=== PATIENT | female | born 1940 | race Caucasian/White ===

== ENCOUNTER 2016-12-04 17:14 | Inpatient (IN) | payer MEDICARE, OTHER ==
[2016-12-04] MEDS ORDERED: TYLENOL 325 MG PO PRN (17:49)
[2016-12-04] MEDS ORDERED: Zofran 4 MG/2 ML VIAL IV PRN (17:49)
[2016-12-04] MEDS ORDERED: PHARMACY DOSING REQUIRED: VANCOMYCIN IV ONE (17:51)
[2016-12-04] MEDS ORDERED: DELTASONE 20 MG PO ONE (17:52)
--- NOTE | 2016-12-04 18:21 | PCM.HP ---
History of Present Illness - Chief Complaint Chief Complaint: cellulitis failed outpatient treatment Date: 12/04/16 History of Present Illness: is a 76 year old female. who has been struggling with cellulites she has one episode previously that had to be treated inpatient in the right leg she thinks 4 years ago. She originally presented on 11/18/16 to see Ibeth Phillips and was treated for lower extremity cellulitis and placed on Bactrim. This caused her to swell and have itching red rash on her upper and lower extremities she thus saw Mehdi Sanches at [facility] on 11/23/16 and was diagnosed with sulfa allergy and changed to doxycycline 100 bid and followed up with myself on 11/25 and it was not improving much and bilateral lower extremities and the peripheral upper extremities red as well. Amoxicillin was added for concern for strep erysipelas and she continued the doxy as well. She took all the antibiotics and the right lower leg continued to get more red hot and was swelling more. She had drainage and had itching bilateral upper and lower extremities as well. [facility] over to our office and on evaluation had a red hot right lower extremity with open lesions and weeping and sent for direct admission for failed outpatient therapy. - Review of Systems Constitutional: No Fever, No Chills Eyes: No Symptoms Ears, Nose, & Throat: No Symptoms Respiratory: No Cough, No Short Of Breath Cardiac: No Chest Pain, No Edema, No Syncope Abdominal/Gastrointestinal: No Abdominal Pain, No Nausea, No Vomiting, No Diarrhea Genitourinary Symptoms: No Dysuria Musculoskeletal: No Back Pain, No Neck Pain Skin: Cellulitis, Pruritis, Rash Neurological: No Dizziness, No Focal Weakness, No Sensory Changes Psychological: No Symptoms Endocrine: No Symptoms Hematologic/Lymphatic: No Symptoms Immunological/Allergic: No Symptoms Medications & Allergies Home Medications: Home Medication List Multivitamin [Multivitamins] 1 tab PO DAILY 03/28/13 [History Confirmed 12/04/16 ] Magnesium Amino Acid Chelate [Magnesium] 1 tab PO DAILY 03/29/13 [History Confirmed 12/04/16] Potassium 99 mg PO BID 12/04/16 [History Confirmed 12/04/16] Ubidecarenone [Co Q-10] 50 mg PO DAILY 12/04/16 [History Confirmed 12/04/16] Allergies/Adverse Reactions: Allergies Allergy/AdvReac Type Severity Reaction Status Date / Time Sulfa (Sulfonamide AdvReac Mild Itching Verified 12/04/16 17:43 Antibiotics) - Past Medical History Past Medical History: Yes Neurological History: No Pertinent History ENT History: No Pertinent History Cardiac History: No Pertinent History Respiratory History: No Pertinent History Endocrine Medical History: Hyperthyroidism Musculoskelatal History: No Pertinent History GI Medical History: No Pertinent History History: No Pertinent History Pyscho-Social History: No Pertinent History Reproductive Disorders: No Pertinent History - Past Surgical History Past Surgical History: Yes Neuro Surgical History: No Pertinent History Cardiac History: No Pertinent History Respiratory Surgery: No Pertinent History GI Surgical History: No Pertinent History Genitourinary Surgical Hx: No Pertinent History Musculskeletal Surgical Hx: No Pertinent History Female Surgical History: No Pertinent History Other Surgical History: tonsilectomy in childhood - Social History Smoking Status: Never smoker Exposure to second hand smoke: No Alcohol: None Drug Use: none - Physical Exam General Appearance: obese Neurologic Exam: alert, oriented x 3, cooperative, normal mood/affect, nml cerebellar function, nml station & gait, sensation nml, No motor deficits Eye Exam: PERRL/EOMI, eyes nml inspection Ears, Nose, Throat Exam: normal ENT inspection, pharynx normal, moist mucous membranes Neck Exam: normal inspection, non-tender, supple, full range of motion Respiratory Exam: normal breath sounds, lungs clear, No respiratory distress Cardiovascular Exam: regular rate/rhythm, normal heart sounds, normal peripheral pulses Gastrointestinal/Abdomen Exam: soft, normal bowel sounds, No tenderness, No mass Back Exam: normal inspection, normal range of motion, No CVA tenderness, No vertebral tenderness Extremity Exam: normal inspection, normal range of motion, pelvis stable Skin Exam: rash, other (right lower leg hot red weeping 4+ edema to knee left lower extremity redness without warmth and bilateral distal upper extremities with redness and excoriations but no warmth or edema) Lymphatic Exam: No adenopathy Assessment/Plan (1) Cellulitis of right lower leg Current Visit: Yes Status: Acute Assessment & Plan: had allergic reaction to bactrim then failed doxy + amoxicillin severe and worsening infection treat with vancomycin pharmacy to dose cbc cmp elevation and compression lovenox for ppx reg diet ambulate as tolerated Code(s): L03.115 - CELLULITIS OF RIGHT LOWER LIMB (2) Obesity Current Visit: Yes Status: Chronic Code(s): E66.9 - OBESITY, UNSPECIFIED
[2016-12-04 18:26] LABS: BASOPHIL % 0.5 % (0.0-0.4); Granulocytes % 72.6 % (36.0-66.0); Mean Cell Volume 92.1 fl (78-100); Mean Corpuscular Hemoglobin 29.4 pg (26-32); Mean Platelet Volume 10.4 fl (6-9.5); Monocytes % 8.9 % (0.0-12.0); Platelet Count 344 K/mm3 (150-450); Red Blood Count 4.66 M/mm3 (4.1-5.4); Red Cell Distribution Width 14.1 % (11.5-14.0); White Blood Count 7.7 K/mm3 (4.0-10.5)
[2016-12-04 18:55] LABS: ALBUMIN 3.5 g/dL (3.4-5.0); ALKALINE PHOSPHATASE 83 U/L (46-116); ANION GAP 10.5 MEQ/L (5-15); BLOOD UREA NITROGEN 17 mg/dL (9-20); CHLORIDE 105 mEq/L (98-107); Carbon Dioxide 31.5 mEq/L (21-32); Glucose 91 MG/DL (70-110); Potassium 4.4 mEq/L (3.5-5.1); SGOT/AST 20 U/L (15-37); SGPT/ALT 19 U/L (12-78); SODIUM 143 mEq/L (136-145); Total Protein 7.1 gm/dL (6.4-8.2)
[2016-12-04] MEDS ORDERED: VANCOCIN 1 GM VIAL*** 1 GM in Sodium Chloride 0.9% 250 ML 250 ML IV SCH (19:30)
[2016-12-04] MEDS ORDERED: Vancomycin 1GM/ Ns 250ML*** 250 ML IV ONE (19:37)
[2016-12-04] MEDS: VANCOCIN 1 GM VIAL*** 1 GM in Sodium Chloride 0.9% 250 ML 250 ML IV ONE (20:42)
[2016-12-05] MEDS: ENOXAPARIN SODIUM SQ SCH (09:37)
--- NOTE | 2016-12-05 12:21 | PCM.NOTE ---
Date and Time: 12/05/16 1218 Subjective Assessment: Pt is having some itchy skin on her LE but it's somewhat improved. no pain. Thinks she may have a little less redness on the LLE. Dali po. - Review of Systems Constitutional: No Fever Skin: Cellulitis Objective Exam General Appearance: no apparent distress Neurologic Exam: alert, oriented x 3, cooperative Respiratory Exam: normal breath sounds, lungs clear, No crackles/rales, No rhonchi, No wheezing Cardiovascular Exam: regular rate/rhythm, normal heart sounds, No murmur Gastrointestinal/Abdomen Exam: soft, normal bowel sounds, No tenderness Extremity Exam: other (RLE is wrapped; there is erythema to the ankle distal to the wrap. Wrap is clean and dry. LLE is mildly erythematous anteriorly from the ankle to the knee; it has regressed slightly from the marked border from yesterday.) OBJECTIVE DATA Vital Signs: Vital Signs - 24 hr Temp Pulse Resp BP BP Pulse Ox 12/05/16 07:48 98.5 F 90 18 130/62 94 L 12/05/16 04:00 98.1 F 98 H 18 148/71 95 12/04/16 23:57 98.8 F 97 H 16 129/62 95 12/04/16 21:00 98.3 F 97 H 18 142/68 94 L 12/04/16 20:00 98.3 F 97 H 18 142/68 94 L Intake and Output: Intake & Output 12/03/16 12/04/16 12/05/16 12/06/16 11:59 11:59 11:59 11:59 Intake Total 1010 Output Total 600 Balance 410 Weight 63.684 kg Lab Results: Lab Results-Last 24 Hours 12/04/16 12/04/16 Range/Units 18:12 18:12 WBC 7.7 (4.0-10.5) K/mm3 RBC 4.66 (4.1-5.4) M/mm3 Hgb 13.7 (12.0-16.0) gm/dl Hct 42.9 (35-47) % MCV 92.1 (78-100) fl MCH 29.4 (26-32) pg MCHC 31.9 L (32-36) g/dl RDW 14.1 H (11.5-14.0) % Plt Count 344 (150-450) K/mm3 MPV 10.4 H (6-9.5) fl Gran % 72.6 H (36.0-66.0) % Lymphocytes % 14.0 L (24.0-44.0) % Monocytes % 8.9 (0.0-12.0) % Eosinophils % 4.0 (0.00-5.0) % Basophils % 0.5 (0.0-0.4) % Basophils # 0.04 (0-0.4) Sodium 143 (136-145) mEq/L Potassium 4.4 (3.5-5.1) mEq/L Chloride 105 (98-107) mEq/L Carbon Dioxide 31.5 (21-32) mEq/L Anion Gap 10.5 (5-15) MEQ/L BUN 17 (9-20) mg/dL Creatinine 0.92 (0.55-1.30) mg/dl Estimated GFR > 60 ML/MIN Glucose 91 (70-110) MG/DL Calcium 9.7 (8.5-10.1) mg/dL Total Bilirubin 0.40 (0.2-1.0) mg/dL AST 20 (15-37) U/L ALT 19 (12-78) U/L Alkaline Phosphatase 83 (46-116) U/L Serum Total Protein 7.1 (6.4-8.2) gm/dL Albumin 3.5 (3.4-5.0) g/dL Multi-Disciplinary Progress Notes: Multi-Disciplinary Progress Notes 12/05/16 10:13 Pharmacy Note by Iftikhar Ley Pharmacokinetic Dosing Report Patient: Elva Lee Room: 107 Basic Entries: Drug Selected: Vancomycin Age: 76 years Weight: 64 kg Height: 56 in Gender: Female SCR: 0.98 mg/dl Calculated Values: Dosing weight: 50.5 kg IBW: 41.5 kg CRCL (ml/min): 31.0 Abraham (hr-1): 0.030 Half-life (hrs): 23.10 Vd (liters): 44.80 (factor: 0.7 L/kg) Final Report: Give Vancomycin 750 mg q24 hrs to produce a predicted peak of 32.1 mcg/ml and a predicted trough of 16.10 mcg/ml based on (Population-based pharmacokinetic analysis). Monitor Bun & Serum creatinine at least q3 days (more frequently if unstable). Obtain drug levels based on local protocol. PATIENT RECEIVED 1 GM LOADING DOSE THEN 750 MG Q24H vANCOMYCIN TROUGH WEDNESDAY EVENING 12/07/16 Initialized on 12/05/16 10:13 - END OF NOTE Assessment/Plan (1) Cellulitis of right lower leg Current Visit: Yes Status: Acute Assessment & Plan: Does not appear to be worsening. She is on IV vancomycin. Afebrile. Will likely take several days to see significant improvement. Code(s): L03.115 - CELLULITIS OF RIGHT LOWER LIMB (2) Obesity Current Visit: Yes Status: Chronic Qualifiers: Obesity type: due to excess calories Obesity classification: adult class 1 (BMI 30 ? 34.9) Code(s): E66.9 - OBESITY, UNSPECIFIED
[2016-12-05] MEDS: VANCOCIN 1 GM VIAL*** 0.75 GM in Sodium Chloride 0.9% 250 ML 250 ML IV SCH (21:42)
[2016-12-06] MEDS: ENOXAPARIN SODIUM SQ SCH (09:37)
--- NOTE | 2016-12-06 13:28 | PCM.NOTE ---
Date and Time: 12/06/16 1325 Subjective Assessment: She has itching and peeling of the legs bilaterally. Dali po well. - Review of Systems Constitutional: No Fever Skin: Cellulitis Objective Exam General Appearance: no apparent distress Neurologic Exam: alert, oriented x 3, cooperative Skin Exam: other (R lower leg with bright red erythema from knee to ankle. no exudate. Has barrier cream present. L lower leg with very mild anterior erythema from distal to knee for ankle. Both extremities are marked.) Respiratory Exam: normal breath sounds, lungs clear, No crackles/rales, No rhonchi, No wheezing Cardiovascular Exam: regular rate/rhythm, normal heart sounds Gastrointestinal/Abdomen Exam: soft, normal bowel sounds, No tenderness Extremity Exam: other (as above) OBJECTIVE DATA Vital Signs: Vital Signs - 24 hr Temp Pulse Resp BP Pulse Ox 12/06/16 12:00 98.0 F 83 18 124/59 95 12/06/16 08:00 98.5 F 63 18 117/62 93 L 12/06/16 04:00 98.2 F 70 18 137/62 95 12/05/16 23:48 98.5 F 99 H 16 138/74 94 L 12/05/16 20:00 98.5 F 88 18 130/59 94 L 12/05/16 16:00 99 F 95 H 18 117/56 94 L Pain Assessment - Last Documented Pain Scale Used [facility] Intake and Output: Intake & Output 12/04/16 12/05/16 12/06/16 12/07/16 11:59 11:59 11:59 11:59 Intake Total 1010 1910 420 Output Total 600 1900 300 Balance 410 10 120 Weight 63.684 kg Multi-Disciplinary Progress Notes: Multi-Disciplinary Progress Notes 12/06/16 13:04 Case Management Note by Claire Boston DISCHARGE PLAN REVIEWED WITH PT. NORMALLY LIVES AT HOME WITH GROWN SON AT HOME , INDEPENDENT OF ALL ADL'S, DECLINES NEED FOR ADDITIONAL ON DISCHARGE. IMPORTANT PAPERS FROM [employer] SIGNED AND PUT ON THE PAPER CHART. WILL CONTINUE TO MONITOR FOR ALL D/C NEEDS. Initialized on 12/06/16 13:04 - END OF NOTE Assessment/Plan (1) Cellulitis of right lower leg Current Visit: Yes Status: Acute Assessment & Plan: On IV vancomycin, no worsening and minimal improvement. I suspect she will start to improve over the next several days. Code(s): L03.115 - CELLULITIS OF RIGHT LOWER LIMB (2) Obesity Current Visit: Yes Status: Chronic Qualifiers: Obesity type: due to excess calories Obesity classification: adult class 1 (BMI 30 ? 34.9) Code(s): E66.9 - OBESITY, UNSPECIFIED
[2016-12-06] MEDS: VANCOCIN 1 GM VIAL*** 0.75 GM in Sodium Chloride 0.9% 250 ML 250 ML IV SCH (20:30)
[2016-12-07] MEDS: ENOXAPARIN SODIUM SQ SCH (09:35)
[2016-12-07] MEDS: Sodium Chloride 0.9% 10 ML FLUSH Syringe IV SCH ×4 (09:36→22:37)
--- NOTE | 2016-12-07 09:47 | PCM.NOTE ---
Date and Time: 12/07/16945 Subjective Assessment: patient notes some mild improvement to erythema to right lower leg. no fever, no pain, no other complaints at this time. Objective Exam General Appearance: no apparent distress, alert Respiratory Exam: normal breath sounds, lungs clear, No respiratory distress Cardiovascular Exam: regular rate/rhythm, normal heart sounds Gastrointestinal/Abdomen Exam: soft, No tenderness, No mass Extremity Exam: other (right lower leg redness, open areas. no calf tenderness. mild clearing upper aspect) OBJECTIVE DATA Vital Signs: Vital Signs - 24 hr Temp Pulse Resp BP Pulse Ox 12/07/16 07:29 98.3 F 62 18 115/56 93 L 12/07/16 04:00 98.4 F 89 18 138/76 95 12/07/16 00:00 98.3 F 71 18 148/65 94 L 12/06/16 20:00 98.9 F 74 17 131/66 95 12/06/16 16:00 98.5 F 102 H 18 131/62 95 12/06/16 12:00 98.0 F 83 18 124/59 95 Pain Assessment - Last Documented Pain Intensity 0 Pain Scale Used 0-10 Pain Scale Intake and Output: Intake & Output 12/04/16 12/05/16 12/06/16 12/07/16 11:59 11:59 11:59 11:59 Intake Total 1010 1910 2070 Output Total 600 1900 2700 Balance 410 10 -630 Weight 63.684 kg Multi-Disciplinary Progress Notes: Multi-Disciplinary Progress Notes 12/06/16 13:04 Case Management Note by Claire Boston DISCHARGE PLAN REVIEWED WITH PT. NORMALLY LIVES AT HOME WITH GROWN SON AT HOME , INDEPENDENT OF ALL ADL'S, DECLINES NEED FOR ADDITIONAL ON DISCHARGE. IMPORTANT PAPERS FROM [employer] SIGNED AND PUT ON THE PAPER CHART. WILL CONTINUE TO MONITOR FOR ALL D/C NEEDS. Initialized on 12/06/16 13:04 - END OF NOTE Assessment/Plan (1) Cellulitis of right lower leg Current Visit: Yes Status: Acute Assessment & Plan: continue IV vanc at this time Code(s): L03.115 - CELLULITIS OF RIGHT LOWER LIMB
[2016-12-07] MEDS ORDERED: TROUGH DRUG LEVELS IJ ONE (20:30)
[2016-12-07] MEDS: VANCOCIN 1 GM VIAL*** 0.75 GM in Sodium Chloride 0.9% 250 ML 250 ML IV SCH (22:32)
[2016-12-08] MEDS: Sodium Chloride 0.9% 10 ML FLUSH Syringe IV SCH ×3 (06:02→21:56)
[2016-12-08 06:04] LABS: ANION GAP 10.1 MEQ/L (5-15); BLOOD UREA NITROGEN 18 mg/dL (9-20); CHLORIDE 109 mEq/L (98-107); Carbon Dioxide 29.3 mEq/L (21-32); Glucose 87 MG/DL (70-110); Potassium 3.8 mEq/L (3.5-5.1); SODIUM 145 mEq/L (136-145)
--- NOTE | 2016-12-08 08:05 | PCM.NOTE ---
Date and Time: 12/08/16802 Subjective Assessment: feeling better less itching swelling and pain improving still redness on right leg and some sweling and a little drainage Objective Exam General Appearance: no apparent distress, obese Neurologic Exam: alert, oriented x 3, cooperative Skin Exam: other (right lower extremity red warm with open ulcerations the redness is improving and receeding bilateral upper extremities and left lower extremity redness resolved) Extremity Exam: No calf tenderness OBJECTIVE DATA Vital Signs: Vital Signs - 24 hr Temp Pulse Resp BP BP Pulse Ox 12/08/16 07:53 98 F 60 20 128/59 94 L 12/08/16 04:00 98.3 F 86 20 116/59 93 L 12/08/16 00:00 98.5 F 95 H 18 160/82 95 12/07/16 20:00 98.4 F 84 69 H 135/67 95 12/07/16 16:00 97.9 F 84 18 144/67 148/71 97 12/07/16 12:00 98.2 F 88 20 126/62 95 Pain Assessment - Last Documented Pain Intensity 0 Pain Scale Used 0-10 Pain Scale Intake and Output: Intake & Output 12/05/16 12/06/16 12/07/16 12/08/16 11:59 11:59 11:59 11:59 Intake Total 1010 1910 2070 1860 Output Total 600 1900 2700 1300 Balance 410 10 -630 560 Weight 63.684 kg Lab Results: Lab Results-Last 24 Hours 12/07/16 12/08/16 Range/Units 20:38 05:10 Sodium 145 (136-145) mEq/L Potassium 3.8 (3.5-5.1) mEq/L Chloride 109 H (98-107) mEq/L Carbon Dioxide 29.3 (21-32) mEq/L Anion Gap 10.1 (5-15) MEQ/L BUN 18 (9-20) mg/dL Creatinine 0.65 (0.55-1.30) mg/dl Estimated GFR > 60 ML/MIN Glucose 87 (70-110) MG/DL Calcium 9.1 (8.5-10.1) mg/dL Vancomycin Trough 4.0 L (10-20) UG/ML Multi-Disciplinary Progress Notes: Multi-Disciplinary Progress Notes 12/07/16 10:00 (created 12/07/16 10:19) Case Management Note by Toya Molina DISCHARGE PLAN REVIEWED, PROVIDES SELF CARE, INDEPENDENT WITH ALL ADL'S. LIVES WITH DAUGHTER. WILL FOLLOW FOR ALL DC NEEDS. Initialized on 12/07/16 10:19 - END OF NOTE Assessment/Plan (1) Cellulitis of right lower leg Current Visit: Yes Status: Acute Assessment & Plan: improving still redness swelling and warmth continue vanc Code(s): L03.115 - CELLULITIS OF RIGHT LOWER LIMB (2) Obesity Current Visit: Yes Status: Chronic Qualifiers: Obesity type: due to excess calories Obesity classification: adult class 1 (BMI 30 ? 34.9) Code(s): E66.9 - OBESITY, UNSPECIFIED
[2016-12-08] MEDS: ENOXAPARIN SODIUM SQ SCH (09:08)
[2016-12-08] MEDS: VANCOCIN 1 GM VIAL*** 0.75 GM in Sodium Chloride 0.9% 250 ML 250 ML IV SCH ×2 (10:03→21:56)
[2016-12-09] MEDS: Sodium Chloride 0.9% 10 ML FLUSH Syringe IV SCH ×3 (06:03→21:06)
--- NOTE | 2016-12-09 08:01 | PCM.NOTE ---
Date and Time: 12/09/16 0758 Subjective Assessment: continues to show improvement still red in the right lower extremity all other extermities back to normal the swelling continues to improve one of the lesions started bleedin ghtis am however no fever or chills Objective Exam General Appearance: no apparent distress, obese Neurologic Exam: alert, oriented x 3, cooperative Skin Exam: warm, other (right lower leg with open ulcerations and diffuse redness and warmth and edema that is improving the left leg and bilateral arms have resolved) Ears, Nose, Throat Exam: moist mucous membranes Neck Exam: non-tender, supple Respiratory Exam: normal breath sounds Cardiovascular Exam: regular rate/rhythm, normal heart sounds OBJECTIVE DATA Vital Signs: Vital Signs - 24 hr Temp Pulse Resp BP BP Pulse Ox 12/09/16 07:17 97.7 F 57 L 16 121/59 91 L 12/09/16 04:12 98.5 F 84 18 136/74 94 L 12/09/16 00:00 98.6 F 87 18 148/66 94 L 12/08/16 20:00 98.8 F 92 H 18 130/63 95 12/08/16 16:00 98.2 F 97 H 20 145/78 94 L 12/08/16 11:21 98.5 F 83 20 151/70 91 L Pain Assessment - Last Documented Pain Intensity 0 Pain Scale Used [facility] Intake and Output: Intake & Output 12/06/16 12/07/16 12/08/16 12/09/16 11:59 11:59 11:59 11:59 Intake Total 1910 2070 2340 1590 Output Total 1900 2700 1300 2650 Balance 10 -630 1040 -1060 Weight 63.684 kg Multi-Disciplinary Progress Notes: Multi-Disciplinary Progress Notes 12/08/16 09:28 Pharmacy Note by SISAL OPERATORGRICEL Vancsameera trough 4, increasing dose to 750mg Q12h to raise trough to therapeutic, check trough again 12/10, will adjust if needed. [facility] Addendum entered by GRICEL BARTLETT 12/08/16 09:36: Correction: trough will be done 9/6 am Initialized on 12/08/16 09:28 - END OF NOTE Assessment/Plan (1) Cellulitis of right lower leg Current Visit: Yes Status: Acute Assessment & Plan: day 5 of vancomycin therapy continues to show slow steady improvement after having failed multiple po antibiotics Code(s): L03.115 - CELLULITIS OF RIGHT LOWER LIMB (2) Obesity Current Visit: Yes Status: Chronic Qualifiers: Obesity type: due to excess calories Obesity classification: adult class 1 (BMI 30 ? 34.9) Code(s): E66.9 - OBESITY, UNSPECIFIED
[2016-12-09] MEDS ORDERED: TROUGH DRUG LEVELS IJ ONE (09:30)
[2016-12-09] MEDS: ENOXAPARIN SODIUM SQ SCH (10:49)
[2016-12-09] MEDS: VANCOCIN 1 GM VIAL*** 0.75 GM in Sodium Chloride 0.9% 250 ML 250 ML IV SCH ×2 (10:49→21:06)
[2016-12-10] MEDS: Sodium Chloride 0.9% 10 ML FLUSH Syringe IV SCH (06:06)
[2016-12-10 08:05] VITALS: BP 120/58
--- NOTE | 2016-12-10 08:44 | PCM.DS ---
Discharge Summary Date of Admission: 12/04/16 17:14 Date of Discharge: 12/10/2016 Admitting Physician: JAE FITZPATRICK Primary Care Provider: JAE FITZPATRICK Allergies Allergies Sulfa (Sulfonamide Antibiotics) Adverse Reaction (Mild, Verified 12/04/16 17:43) Itching Hospital Summary - Hospital Course Hospital Course: after failing multiple outpatient antibiotic regimens and having an allergic reaction to bactrim for her lower extremity cellulites she was admitted for inpatient vancomycin treatment. THis improved the cellulitis that was predominately on the right lower extremity but had redness of all 4 peripheral extremities the upper and left lower extremity showed rapid improvement but the right lower extremity continues to have swelling and redness and a small amount of drainage from the open lesions. This is all improving but slowly. SHe is feeling much better with the decreased swelling and has safe transportation to the hospital and would like to try to go home with follow up twice daily infusions at outpatient infusion center. - Vitals & Intake/Output Vital Signs: Vital Signs Temperature 97.5 F 12/10/16 08:00 Pulse Rate 58 L 12/10/16 08:00 Respiratory Rate 17 12/10/16 08:00 Blood Pressure 120/58 12/10/16 08:00 O2 Sat by Pulse Oximetry 95 12/10/16 08:00 Intake & Output: Intake & Output 12/07/16 12/08/16 12/09/16 12/10/16 11:59 11:59 11:59 11:59 Intake Total 2070 2340 2010 2240 Output Total 2700 1300 2650 1999 Balance -630 1040 -640 240 Weight 63.684 kg - Lab Result Diagrams: 12/04/16 18:12 12/08/16 05:10 Lab Results-Last 24 Hrs: Lab Results-Last 24 Hours 12/09/16 Range/Units 09:30 Vancomycin Trough 10.2 (10-20) UG/ML - Procedures and Test Procedures and Tests throughout Hospitalization: Therapy Orders & Screens 12/04/16 21:57 OT Screen per Nursing Assess ONCE Comment: Protocol Order Physician Instructions: Greater than 3 points order OT Admission Screening Reason For Exam: Triggered on Admission Diagnosis: Cellulitis, failed outpatient treatment Open Wound/Cellutlitis/Pressure Ulcers: Yes Acute Fx/ORIF/Change in wt bearing status: No Severe MUSCULOSKELETAL pain: No ADL Dysfunction: No Acute CVA w/Hemiparesis/Hemiplegia: No Decreased Functional Mobility/Strength: No Sprain/Strain: No Acute Post-op Mobility Dysfunction: No Total Points: 5 PT Screen per Nursing Assess ONCE Comment: Protocol Order Physician Instructions: Greater than 3 points order PT Admission Screenin Reason For Exam: Triggered on Admission Diagnosis: Cellulitis, failed outpatient treatment Open Wound/Cellutlitis/Pressure Ulcers: Yes Acute Fx/ORIF/Change in wt bearing status: No Severe MUSCULOSKELETAL pain: No ADL Dysfunction: No Acute CVA w/Hemiparesis/Hemiplegia: No Decreased Functional Mobility/Strength: No Sprain/Strain: No Acute Post-op Mobility Dysfunction: No Total Points: 5 Discharge Exam General Appearance: no apparent distress, obese Neurologic Exam: alert, oriented x 3, cooperative Skin Exam: warm (right lower extremity with persistent swelling redness and warmth slightly improved again today from yesterday open ulcerations not draining this am) Eye Exam: No scleral icterus, No pale conjunctivae Ears, Nose, Throat Exam: moist mucous membranes Neck Exam: non-tender, supple Respiratory Exam: normal breath sounds, lungs clear Cardiovascular Exam: regular rate/rhythm, normal heart sounds Gastrointestinal/Abdomen Exam: soft, normal bowel sounds, No tenderness Extremity Exam: pedal edema (right with trace on left) Final Diagnosis/Problem List - Final Discharge Diagnosis/Problem (1) Cellulitis of right lower leg Current Visit: Yes Status: Acute (2) Obesity Current Visit: Yes Status: Chronic - Discharge Discharge Date: 12/10/16 Disposition: Home, Self-Care Condition: Stable Prescriptions: New Vancomycin HCl 0.75 gm IV BID #8 vial Continue Multivitamin [Multivitamins] 1 tab PO DAILY Magnesium Amino Acid Chelate [Magnesium] 1 tab PO DAILY Ubidecarenone [Co Q-10] 50 mg PO DAILY Potassium 99 mg PO BID Additional Instructions: have infusion vancomycin 750 mg IV BID through Wednesday and will recheck leg in office Wednesday morning after infusion. Keep leg elevated and barrier cream and gentle compression. Follow up with: JAE FITZPATRICK [Primary Care Provider] - 12/14/16
[2016-12-10] MEDS: ENOXAPARIN SODIUM SQ SCH (09:54)
[2016-12-10] MEDS: VANCOCIN 1 GM VIAL*** 0.75 GM in Sodium Chloride 0.9% 250 ML 250 ML IV SCH (09:54)
[2016-12-10 12:07] VITALS: PULSE 86; O2SAT 93
== END 2016-12-10 13:10 | disposition home or self-care (01) | DRG 603 ==
LOC: MED SURG 17:14
PROVIDERS: ADMIT Family Medicine; ATTEND Family Medicine
DX: L03.115 Cellulitis of right lower limb (principal); E66.9 Obesity, unspecified; E05.90 Thyrotoxicosis, unspecified without thyrotoxic crisis or storm
CPT/HCPCS: 36415; 80048; 80053; 80202; 85025; J1650; J3370; J7506